=== PATIENT | female | born 1990 | race Caucasian/White ===

== ENCOUNTER 2017-02-08 20:06 | Emergency (ER) | payer OTHER ==
[2017-02-08 20:26] VITALS: BP 117/54
[2017-02-08] MEDS ORDERED: MIREIUD IU (20:38)
== END 2017-02-08 22:03 | disposition home or self-care (01) ==
LOC: M ED 21:19
DX: S00.93XA Contusion of unspecified part of head, initial encounter (principal); V43.52XA Car driver injured in collision with other type car in traffic accident, initial encounter; Y92.410 Unspecified street and highway as the place of occurrence of the external cause; Y93.9 Activity, unspecified; Y99.9 Unspecified external cause status; Z79.3 Long term (current) use of hormonal contraceptives